=== PATIENT | female | born 1985 ===

== ENCOUNTER 2019-07-12 23:41 | Emergency (ER) | payer SELFPAY ==
[2019-07-12 23:51] VITALS: BP 142/95
[2019-07-13] MEDS ORDERED: TORADOL IM ONE (01:05)
--- NOTE | 2019-07-13 01:10 | Emergency Department Report ---
ED ENT HPI - General Chief complaint: Dental/Oral Stated complaint: TOOTHACE Time Seen by Provider: 07/13/19 01:04 Source: patient Mode of arrival: Ambulatory Limitations: No Limitations - History of Present Illness Initial comments: Esthela is a 34 yo female with hx of opioid dependence on methadone who presents with dental abscess and severe dental pain since last night. Teeth 5-6 involved. No fever. No difficulty with swallowing. has mild right cheek swelling. MD complaint: tooth pain -: Gradual Location: tooth # (5-6) Severity: severe Severity scale (0 -10): 10 Quality: aching Consistency: constant Improves with: pressure Worsens with: eating, other (chewing) Context- Dental: history of dental caries, poor dental care - Related Data Previous Rx's Medication Instructions Recorded Last Taken Type Penicillin V Potassium 500 mg PO QID 7 Days #28 tablet 07/13/19 Unknown Rx Allergies Allergy/AdvReac Type Severity Reaction Status Date / Time No Known Allergies Allergy Verified 07/12/19 23:43 ED Dental HPI - General Chief complaint: Dental/Oral Stated complaint: TOOTHACE Time Seen by Provider: 07/13/19 01:04 Source: patient Mode of arrival: Ambulatory Limitations: No Limitations - Related Data Previous Rx's Medication Instructions Recorded Last Taken Type Penicillin V Potassium 500 mg PO QID 7 Days #28 tablet 07/13/19 Unknown Rx Allergies Allergy/AdvReac Type Severity Reaction Status Date / Time No Known Allergies Allergy Verified 07/12/19 23:43 ED Review of Systems ROS: Stated complaint: TOOTHACE Other details as noted in HPI Constitutional: denies: chills, fever, malaise ENT: dental pain. denies: ear pain, throat pain Respiratory: denies: shortness of breath Skin: denies: rash, lesions ED Past Medical Hx - Past Medical History Previous Medical History?: No - Surgical History Past Surgical History?: No - Social History Smoking Status: Current Every Day Smoker Substance Use Type: None - Medications Home Medications: Home Medications Medication Instructions Recorded Confirmed Last Taken Type Penicillin V Potassium 500 mg PO QID 7 Days #28 tablet 07/13/19 Unknown Rx ED Physical Exam - General Limitations: No Limitations General appearance: alert, in no apparent distress, other (appears in pain) - Head Head exam: Present: atraumatic, normocephalic - ENT ENT exam: Present: other (diffuse teeth decay and fracture, gum swelling no discharge) - Neck Neck exam: Present: normal inspection, full ROM. Absent: tenderness, meningismus - Neurological Exam Neurological exam: Present: alert, oriented X3 - Psychiatric Psychiatric exam: Present: normal affect, normal mood - Skin Skin exam: Present: warm, dry, intact, normal color ED Course Vital Signs 07/12/19 23:44 Temperature 97.6 F Pulse Rate 134 H Respiratory 20 Rate Blood Pressure 142/95 [Right] O2 Sat by Pulse 100 Oximetry ED Medical Decision Making - Medical Decision Making dental abscess no airway compromise anticipated IM toradol given in the ED rx: pcn Critical care attestation.: If time is entered above; I have spent that time in minutes in the direct care of this critically ill patient, excluding procedure time. ED Disposition Clinical Impression: Dental abscess Disposition: TO HOME OR SELFCARE Is pt being admited?: No Does the pt Need Aspirin: No Condition: Stable Instructions: Dental Abscess (ED) Prescriptions: Penicillin V Potassium 500 mg PO QID 7 Days #28 tablet Referrals: [facility] [Outside] - 3-5 Days [facility] [Outside] - 3-5 Days
== END 2019-07-13 01:31 | disposition home or self-care (01) ==
LOC: ED 23:41
DX: K04.7 Periapical abscess without sinus (principal); F17.200 Nicotine dependence, unspecified, uncomplicated
CPT/HCPCS: 96372; 99282; J1885